=== PATIENT | female | born 1985 | race Caucasian/White ===

== ENCOUNTER → 2019-03-16 | Outpatient (CLI) | payer OTHER ==
[~2019-03-16] MED LIST: 0; ACET250; ACET250 PO; ACET500ER PO; ALBIPROI INH; ALBU90OI INH; ALBU90OI6 INH; ASCO500 PO; ASPI325EC PO; AZIT250 PO; Ativan1 MG PO; BACL10 PO; BENTYL20 MG PO; BIRTH CONTROL PILLS; BUTASPCAF PO; BUTASPCAFT PO; Bactrim Ds Tab1 EACH PO; CALCA500CH PO; CEFD300 PO; CETI10 PO; CETI5 PO; CIME400 PO; CODACE30 PO; CYCL10 PO; Cipro500 MG PO; Cleocin HCl150 MG PO; Crutch1 EACH MISC; DOXY100 PO; ESCI5; FLUSAL1005 IH; FLUT.05NI; GABA300 PO; HYDACE10B PO; HYDHCL25 PO; Hydroxyzine HCl50 MG PO; IBUP600 PO; IBUP800 PO; INHALER FOR ASTHMA; KETO10 PO; Keflex500 MG PO; LEVSOD50 PO; LEVSOD75 PO; LORA.5 PO; LORA1 PO; LORA10ER PO; MECL25 PO; MEDR150I; META800 PO; METCAR500 PO; METPRE4DP PO; MIGRANAL; MIGRANOL; MILN100T PO; Maxalt10 MG PO; Mobic7.5 MG PO; Motrin600 MG PO; NAPR500 PO; NAPR500EC PO; NAPR550 PO; ONDA4ODT MM; OXYACE5T PO; PARO10 PO; PETADOLEX 7575 MG PO; POTCHL20ER PO; PRED20 PO; PREDNISONE 20 MG; PREG100 PO; PROACE100 PO; PROM25 PO; PROM25S PO; PROP10 PO; Protonix40 MG PO; QUET25 PO; RXCODACET PO; RXLORA1 PO; RXMETA800 PO; RXPROACE PO; SERT25 PO; SULTRIDS PO; SUMA25 PO; TOPI100 PO; TOPI50 PO; TOPIRAMATE ER100 MG PO; TRAM50 PO; Ultram50 MG PO; ZOLP5 PO; [UNRECOGNIZED DRUG - REMARK]
[2019-03-16 11:28] LABS: BASOPHILS ABSOLUTE AUTO 0.12 K/mm3 (0.00-0.23); BASOPHILS PERCENT AUTO 1 % (0-2); EOSINOPHILS ABSOLUTE AUTO 0.44 K/mm3 (0.00-0.68); EOSINOPHILS PERCENT AUTO 5 % (0-6); Hematocrit 43.1 % (33.0-51.0); Hemoglobin 14.5 g/dL (11.5-16.0); IMMATURE GRAN ABSOLUTE AUTO 0.05 K/mm3 (0.00-0.10); IMMATURE GRAN PERCENT AUTO 1 % (0-1); LYMPHOCYTES ABSOLUTE AUTO 2.64 K/mm3 (0.84-5.20); LYMPHOCYTES PERCENT AUTO 29 % (21-46); MONOCYTES ABSOLUTE AUTO 0.48 K/mm3 (0.16-1.47); MONOCYTES PERCENT AUTO 5 % (4-13); Mean Corpuscular HGB 30.7 pg (26.0-34.0); Mean Corpuscular HGB Conc 33.6 g/dL (31.5-36.5); Mean Corpuscular Volume 91 fL (80-100); Mean Platelet Volume 9.8 fL (9.1-12.4); NEUTROPHILS PERCENT AUTO 60 % (41-73); Platelet Count 262 K/mm3 (150-400); RDW Coefficient Variation 13.6 % (11.7-14.2); RDW Standard Deviation 45.9 fL (35.1-46.3); Red Blood Cell Count 4.72 M/mm3 (3.80-5.20); White Blood Cell Count 9.23 K/mm3 (4.00-11.30)
[2019-03-16 11:40] LABS: Albumin, Blood 3.4 g/dL (3.4-5.0); Albumin/Globulin Ratio 0.8 (0.8-1.8); Bilirubin, Total 0.4 mg/dL (0.1-1.0); Bun/Creatinine Ratio 16.5 (12.0-20.0); Calcium, Blood 7.7 mg/dL (8.5-10.1); Creatinine, Blood 1.21 mg/dL (0.40-1.00); Globulin, Blood 4.2 g/dL (2.2-4.0); Total Protein, Blood 7.6 g/dL (6.4-8.2)
== END ==
LOC: LAB EV 11:24 → LAB SHORT 11:24
PROVIDERS: Emergency Medicine
DX: R10.11 Right upper quadrant pain (principal)
CPT/HCPCS: 80053; 82150; 83690; 85025

== ENCOUNTER 2019-08-20 08:27 | Emergency (ER) | payer OTHER ==
[~2019-08-20] VITALS: Ht 167.6 cm; Wt 99.8 kg
[2019-08-31] MEDS ORDERED: MONT10T (01:59)
[2019-08-31] MEDS ORDERED: QUET25 (02:01)
[2019-08-31] MEDS ORDERED: HYDHCL25 (02:03)
== END 2019-08-20 09:53 | disposition home or self-care (01) ==
LOC: ER 08:27
DX: J02.9 Acute pharyngitis, unspecified (principal); I10 Essential (primary) hypertension; F32.9 Major depressive disorder, single episode, unspecified; E03.9 Hypothyroidism, unspecified; K21.9 Gastro-esophageal reflux disease without esophagitis; F17.200 Nicotine dependence, unspecified, uncomplicated; Z79.899 Other long term (current) drug therapy; Z91.030 Bee allergy status; Z91.041 Radiographic dye allergy status; Z88.8 Allergy status to other drugs, medicaments and biological substances; Z91.018 Allergy to other foods; Z88.0 Allergy status to penicillin
CPT/HCPCS: 87081; 87430; 99283; J1100; Q0163

== ENCOUNTER 2019-09-04 12:38 | Emergency (ER) | payer OTHER ==
[~2019-09-04] VITALS: Ht 170.2 cm; Wt 101.6 kg
[~2019-09-04 12:38] MED LIST changes: +Acetaminophen-1 EAC1 PO; +CEPH500 PO; +HYDHCL25; +MONT10T; +QUET25
== END 2019-09-04 13:05 | disposition left against medical advice (07) ==
LOC: ER 12:38
DX: Z53.21 Procedure and treatment not carried out due to patient leaving prior to being seen by health care provider (principal)

== ENCOUNTER → 2019-12-17 | Outpatient (CLI) | payer OTHER ==
[2019-12-17 15:56] LABS: Source, Urine Clean Catch
[2019-12-17 18:33] LABS: Bilirubin, Urine Neg (Neg); Blood, Urine 3+ (Neg); Glucose Qualitative, Urine Neg (Neg); Ketones, Urine Neg (Neg); Leukocyte Esterase, Urine 2+ (Neg); Nitrite, Urine Neg (Neg); Protein, Urine 3+ (Neg); Urobilinogen, Urine NORM (Normal)
[2019-12-17 19:14] LABS: Appearance, Urine Hazy (Clear); Color, Urine Yellow (P-Yellow)
[2019-12-17 19:15] LABS: Red Blood Cells, Urine 25-50 /hpf (0-2); White Blood Cells, Urine 50-100 /hpf (0-5)
[2019-12-17 19:16] LABS: Bacteria Many /hpf; Squamous Epithelial Cells Mod /hpf (Few)
== END | disposition home or self-care (01) ==
LOC: LAB 15:42 → LAB SHORT 15:42
PROVIDERS: Nurse Practitioner Family
DX: R30.9 Painful micturition, unspecified (principal)
CPT/HCPCS: 81001

== ENCOUNTER → 2020-01-24 | Outpatient (CLI) | payer OTHER | END | disposition home or self-care (01) | LOC: LAB SHORT 17:19 → LAB EV 17:19 | DX: L02.91 Cutaneous abscess, unspecified (principal) | CPT/HCPCS: 87070; 87075; 87205 ==

== ENCOUNTER 2020-04-05 19:20 | Emergency (ER) | payer OTHER ==
[~2020-04-05] VITALS: Ht 167.6 cm; Wt 93.4 kg
[2020-04-05] MEDS ORDERED: Naprosyn500 MG PO (20:03)
[2020-04-05] MEDS ORDERED: Cyclobenzaprine5 MG PO (20:03)
== END 2020-04-05 20:31 | disposition home or self-care (01) ==
LOC: ER 19:20
DX: S16.1XXA Strain of muscle, fascia and tendon at neck level, initial encounter (principal); S29.012A Strain of muscle and tendon of back wall of thorax, initial encounter; S39.012A Strain of muscle, fascia and tendon of lower back, initial encounter; E03.9 Hypothyroidism, unspecified; F32.9 Major depressive disorder, single episode, unspecified; K21.9 Gastro-esophageal reflux disease without esophagitis; F17.200 Nicotine dependence, unspecified, uncomplicated; Z91.030 Bee allergy status; Z91.041 Radiographic dye allergy status; Z88.8 Allergy status to other drugs, medicaments and biological substances; Z88.5 Allergy status to narcotic agent; Z91.010 Allergy to peanuts; Z88.0 Allergy status to penicillin; Z91.018 Allergy to other foods; Z79.899 Other long term (current) drug therapy; V49.40XA Driver injured in collision with unspecified motor vehicles in traffic accident, initial encounter; Y92.481 Parking lot as the place of occurrence of the external cause
CPT/HCPCS: 96372; 99283-25; J1885

== ENCOUNTER 2021-02-07 12:50 | Emergency (ER) | payer OTHER ==
[~2021-02-07] VITALS: Ht 167.6 cm; Wt 93.0 kg
== END 2021-02-07 13:58 | disposition home or self-care (01) ==
LOC: ER 12:50
DX: T16.1XXA Foreign body in right ear, initial encounter (principal); H60.12 Cellulitis of left external ear; F17.200 Nicotine dependence, unspecified, uncomplicated; Z91.030 Bee allergy status; Z91.010 Allergy to peanuts; Z88.5 Allergy status to narcotic agent; Z88.0 Allergy status to penicillin; Z91.041 Radiographic dye allergy status
CPT/HCPCS: 99282

== ENCOUNTER → 2021-03-17 | Outpatient (CLI) | payer OTHER ==
[~2021-03-17] MED LIST changes: +Cyclobenzaprine5 MG PO; +MUPIROCIN1 G1 TOP; +Naprosyn500 MG PO
== END ==
LOC: LAB SHORT 14:38 → LAB 14:38
DX: R35.0 Frequency of micturition (principal); Z91.041 Radiographic dye allergy status; Z88.0 Allergy status to penicillin; Z91.010 Allergy to peanuts; Z88.5 Allergy status to narcotic agent; Z88.8 Allergy status to other drugs, medicaments and biological substances; Z91.018 Allergy to other foods; Z91.038 Other insect allergy status
CPT/HCPCS: 87077; 87086; 87186

== ENCOUNTER → 2022-03-24 | Outpatient (CLI) | payer OTHER | END | disposition home or self-care (01) | LOC: LAB 15:08 → LAB SHORT 15:08 | DX: R07.81 Pleurodynia (principal) | CPT/HCPCS: 85379 ==

== ENCOUNTER 2022-05-09 13:37 | Emergency (ER) | payer OTHER ==
[~2022-05-09] VITALS: Ht 167.6 cm; Wt 99.8 kg
[2022-05-09] MEDS ORDERED: ERYT1OIN RIGHTEYE (14:08)
[2022-05-09] MEDS ORDERED: POLYTRIM EYE DR10 M1 RIGHTEYE (14:25)
== END 2022-05-09 14:08 | disposition home or self-care (01) ==
LOC: ER 13:37
DX: H10.89 Other conjunctivitis (principal); E03.9 Hypothyroidism, unspecified; K21.9 Gastro-esophageal reflux disease without esophagitis; F17.200 Nicotine dependence, unspecified, uncomplicated; Z79.899 Other long term (current) drug therapy; Z91.041 Radiographic dye allergy status; Z91.038 Other insect allergy status; Z88.5 Allergy status to narcotic agent; Z91.010 Allergy to peanuts; Z88.0 Allergy status to penicillin; Z88.8 Allergy status to other drugs, medicaments and biological substances; Z91.018 Allergy to other foods
CPT/HCPCS: 99282

== ENCOUNTER → 2023-02-14 | Outpatient (CLI) | payer OTHER ==
[~2023-02-14] MED LIST changes: +ERYT1OIN RIGHTEYE; +POLYTRIM EYE DR10 M1 RIGHTEYE
== END | disposition home or self-care (01) ==
LOC: LAB SHORT 12:58 → LAB 12:58
DX: N39.0 Urinary tract infection, site not specified (principal)
CPT/HCPCS: 87086

== ENCOUNTER → 2024-03-12 | Outpatient (CLI) | payer OTHER | END | disposition home or self-care (01) | LOC: LAB SHORT 15:17 → LAB 15:17 | DX: R82.998 Other abnormal findings in urine (principal) | CPT/HCPCS: 87086 ==

== ENCOUNTER 2024-09-10 13:18 | Day surgery (SDC) | payer OTHER | END 2024-09-11 23:00 | disposition home or self-care (01) | LOC: MHTC 13:18 → EDSTATUS 14:00 → MHTC 09-11 23:00 | DX: R42 Dizziness and giddiness (principal); Z88.0 Allergy status to penicillin; Z88.5 Allergy status to narcotic agent; Z88.8 Allergy status to other drugs, medicaments and biological substances; Z91.030 Bee allergy status | CPT/HCPCS: 93660 ==